=== PATIENT | female | born 1990 | race Caucasian/White ===

== ENCOUNTER 2016-10-12 12:28 | Emergency (ER) | payer MEDICAID ==
[~2016-10-12] VITALS: Ht 157.5 cm; Wt 78.6 kg
[2016-10-12] MEDS ORDERED: SODIUM CHLORIDE 0.9% 1,000ML IVBOLUS ONE (13:00)
[2016-10-12 13:20] LABS: HEMOGLOBIN 12.4 g/dL (11.7-16.4)
[2016-10-12 13:30] LABS: BLOOD UREA NITROGEN 10 mg/dL (7-18)
[2016-10-12 13:35] LABS: ASPARTATE AMINO TRANSFERASE 15 U/L (15-37)
[2016-10-12] MEDS ORDERED: HYDROcodone/APAP 5/325 TABLET PO ONE (16:00)
[2016-10-12] MEDS ORDERED: HYDROcodone/APAP 5/325 TABLET ONE (16:00)
[2016-10-12 17:06] VITALS: BP 120/78
== END 2016-10-12 17:57 | disposition home or self-care (01) ==
LOC: ED 17:51
DX: Z32.01 Encounter for pregnancy test, result positive (principal)
CPT/HCPCS: 36415; 76830; 80053; 81001; 84702; 84703; 85025; 87086